=== PATIENT | female | born 1990 | race Caucasian/White ===

== ENCOUNTER 2016-07-29 05:19 | Observation (INO) | payer BC ==
[2016-07-29] VITALS (8 sets, daily range): BP systolic 122–191; BP diastolic 54–99
[~2016-07-29] VITALS: Ht 175.3 cm; Wt 109.3 kg
--- NOTE | ~2016-07-29 | EKG ---
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 07/29/16 0803 Aaron Elizondo MD, [facility] /EPI
--- NOTE | ~2016-07-29 | O ---
[address] [address] OPERATIVE REPORT Name: BASILIO LOVE Room #: 548-I [facility] M..#: [id number] Admission: 07/29/16 Attend Phys: Ronald Galeana MD Discharge: Date of : 88 Report #: [id number] THIS REPORT FOR: //name// CC: FAM unknown Ronald Galeana DATE OF SERVICE: 07/29/2016 SERVICE: Orthopedics. FACILITY: [facility]. SURGEON: Ronald Galeana MD G[employer] INSTALLER: None. PREOPERATIVE DIAGNOSES: 1. Left hip pain. 2. Status post prior left hip arthroscopy and labral repair. 3. Left hip labral tear (recurrent). 4. Left hip combined type femoroacetabular impingement. POSTOPERATIVE DIAGNOSES: 1. Left hip pain. 2. Status post prior left hip arthroscopy and labral repair. 3. Left hip labral tear (recurrent). 4. Left hip combined type femoroacetabular impingement. 5. Left hip chondromalacia. COMPLICATIONS: None. DRAINS: None. SPECIMENS: None. ANESTHESIA TYPE: Single shot regional nerve block with general endotracheal. PROCEDURE: 1. Left hip arthroscopic acetabuloplasty. 2. Left hip arthroscopic Cam osteochondroplasty. 3. Left hip arthroscopic labral reconstruction with allograft. Procedure complexity increased due to large bony deformity as identified on preop imaging & confirmed on arthroscopy, revision nature of the procedure and labral allograft reconstruction. [address] [address] OPERATIVE REPORT Name: BASILIO LOVE Room #: 548-I [facility]#: [id number] Admission: 07/29/16 Attend Phys: Ronald Galeana MD Discharge: Date of : 88 Report #: [id number] ESTIMATED BLOOD LOSS: 10 mL. COMPLICATIONS: None. DRAINS: None. SPECIMENS: None. FINDINGS: 1. Calcified labrum with a very large subspine and over coverage as pincer pathology, treated with extensive resection. 2. Labral reconstruction performed with a total of 8 [employer] NanoTack anchors. 3. Labral reconstruction with fascia mikel allograft measuring 4-1/2 to 5 mm in diameter x 75 mm in length. 4. Small Cam osteoplasty performed. HISTORY AND INDICATIONS: The patient is a 26-year-old female who is status post previous left hip arthroscopy, limited rim acetabuloplasty and small Cam osteoplasty with the labral repair about 5 years ago. 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 She has been having persistent pain for approximately 2 years now and all conservative measures have failed to provide relief including oral medicines, intraarticular corticosteroid, rest, activity modification, care aide, alternative modalities and physical therapy. She had preoperative imaging that demonstrated severe pincer pathology with a prominent subspinous region in a lateral center edge angle of approximately 55 degrees. She had an alpha angle of 55 degrees as well located to a small area at the distal femoral neck. Risks, benefits, alternatives and indications for surgical treatment were discussed after she failed conservative measures. Risks include, but not limited to pain, bleeding, infection, injury to nerves or blood vessels, persistent pain despite surgical intervention, failure of any repairs, reconstructions, progression of any preexisting chondral injury, stiffness, need for further surgery as well as complications related to anesthesia such as stroke, heart attack, pulmonary complications, thromboembolic disease and . PROCEDURE IN DETAIL: After left lower extremity was correctly identified in the preoperative holding area as the operative extremity, the patient underwent placement of a single shot regional nerve block by the anesthesia team. She was then taken to the operating room and transferred to the operating table and general endotracheal anesthesia was induced without complication. All bony prominences and subcutaneous nerves were padded appropriately. Prophylactic antibiotics were administered at appropriate time. Bilateral feet were placed in traction boots and we mapped out the left femoral head and neck junction, identifying a small Cam bump on the distal neck. The left lower extremity was [address] [address] OPERATIVE REPORT Name: BASILIO LOVE Room #: 548-I [facility]..#: [id number] Admission: 07/29/16 Attend Phys: Ronald Galeana MD Discharge: Date of : 88 Report #: [id number] then prepped and draped in standard sterile fashion. Time-out procedure was performed. Traction was applied to the left lower extremity. We did a total of 2 traction sessions, the first one lasting for 1 hour and 12 minutes followed by approximately 10-minute break with an additional segment of 1 hour and 27 minutes of traction. Under the first session of traction, the acetabular pathology was addressed. There was noted to be limited amount of labral tissue. The previous labral repair was visualized. The capsule had scarred into this tissue and the labrum was fraying and the repair was beginning to fail. There was a calcification of the labrum and a significant amount of subspinous acetabular bone that was prominent and encroaching over the top of the labrum and so a biter shaver and a bur were used to perform a resection. The residual labral tissue was resected. The acetabuloplasty at the rim was taken from approximately 3 o'clock position and anterior to a right hip all the way around to the 8 o'clock position, which was posterior on a standardized right hip. There was a large subspinous pincer lesion and so the bur was used to perform a subspine acetabuloplasty as well, resecting bone up above the acetabular rim, which alleviated much of the lateral excess bone and anterolateral excess bone. The patient had an MRI and a CT scan for preoperative planning to identify the extent of the resection. There was some chondral damage, particularly laterally on the acetabulum consistent with the type of pathology that she had. There was some involving posterolateral as well consistent with a contrecoup lesion. After the acetabular prep was performed, the first 3 anchors were placed medially, the first one at the 2 o'clock position overlapping with the confederated coos labrum and then 2 more in the adjacent bone. The tails were then pulled out of the mid anterior portal. Traction was then let down. The hip was flexed up and the previous Cam osteoplasty was evaluated. There was a very well contoured osteoplasty along the femoral neck. There was one bump that was distal on the neck that correlated with the location of the opposing acetabular pincer lesion and so the bur was used to perform a Cam osteoplasty of this focal area on the distal neck. After this was completed, it was felt that the femoral head and neck had a very anatomic appearance. Traction was then taken up and then 3 additional anchors were placed moving around laterally for a total of six anchors in the acetabulum at this point in the procedure. The labral allograft was then passed into the hip. The first anchor at the 2 o'clock position, a suture was passed through the edge of the labrum in a modified Stanford stitch type technique. This was advanced into the hip, tied and secured and then the remaining five sutures were passed in a cerclage fashion around the graft with care taken to hold it in its appropriate position so that it would provide a good fluid seal on the femoral head. At this point, the scope was placed anteriorly and the cannula was placed in the anterolateral portal and [address] [address] OPERATIVE REPORT Name: BASILIO LOVE Room #: 548-I [facility]..#: [id number] Admission: 07/29/16 Attend Phys: Ronald Galeana MD Discharge: Date of : 88 Report #: [id number] additional anchors were placed near the lateral terminus of the planned graft location. The original graft was 90 mm in length and the final sizing was 75 mm, allowing us to resect approximately 10 mm of graft and tuck the final 5 mm posterior to the confed[place] coos labrum in the posterolateral hip. The final 2 anchors were placed near one another for secure graft repair at the corner with the last 1 passed through the confed[place] coos labrum and through the graft in a mattress suture technique. The labrum was found to be secure and stable at this point and then the traction was let down and the labrum was seen to provide a good seal along the femoral head. At this point, the hip was lavaged. The capsule was then closed with two #2 Vicryl sutures and the instruments were removed from the hip. The arthroscopic effusion was drained. The portal sites were closed with 2-0 Monocryl suture with a deep followed by superficial stitch. Sterile dressing was applied. The patient was awakened from anesthesia and taken to recovery room in stable condition. There were no complications and all counts were recorded as correct. <ELECTRONICALLY SIGNED> By: Ronald Galeana MD 07/29/16 1711 1202 1320 Ronald Galeana MD /nt
[~2016-07-29 05:19] MED LIST: CITALOPRAM HBR40 MG PO; LISINOPRIL10 MG PO; MULTIVITAMINS1 EAC7 PO
[2016-07-30 05:06] VITALS: BP 138/74
[2016-07-30 07:11] VITALS: BP 138/72
[2016-07-30] MEDS ORDERED: COLACE100 MG PO (13:11)
[2016-07-30] MEDS ORDERED: ROXICODONE5 M2 PO (13:13)
[2016-07-30] MEDS ORDERED: ASPIRIN EC325 MG PO (13:16)
[2016-07-30] MEDS ORDERED: ONDANSETRON HCL4 M2 PO (13:17)
[2016-07-30 13:19] VITALS: BP 138/72
[2016-07-30] MEDS ORDERED: NAPROSYN500 MG PO (13:19)
== END 2016-07-30 14:15 | disposition home health service (06) ==
LOC: OR 05:19 → TBA 05:20 → 5S 13:26 → OR 13:26 → 5S 07-30 14:15
DX: S73.102A Unspecified sprain of left hip, initial encounter (principal); M25.852 Other specified joint disorders, left hip; M94.252 Chondromalacia, left hip
CPT/HCPCS: 50010; 50101; 50386; 51538; 52298; 52304; 55383; 56524; 56525; 56527; 56529; 57092; 62110; 62900; 70005